=== PATIENT | female | born 1995 | race Two or more races ===

== ENCOUNTER 2018-07-02 05:09 | Inpatient (IN) | payer OTHER, MEDICAID ==
[~2018-07-02] VITALS: Ht 160 cm; Wt 100.0 kg
[2018-07-02] MEDS ORDERED: OXYTOCIN 30U/ 0.9% NaCL 500ML 500 ML IV ONE (05:29)
[2018-07-02] MEDS ORDERED: FENTANYL PF 100 MCG/2ML IV PRN (05:30)
[2018-07-02] MEDS: LACTATED RINGERS 1,000 ML IV SCH ×3 (05:35→19:11)
[2018-07-02] MEDS ORDERED: MISOPROSTOL 200 MCG TABLET ONE (05:38)
[2018-07-02] MEDS ORDERED: OXYTOCIN 30U/ 0.9% NaCL 500ML 500 ML ONE ×2 (05:38→11:14)
[2018-07-02] MEDS ORDERED: NEWBORN KIT ONE (05:38)
[2018-07-02] MEDS ORDERED: LIDOCAINE/PF 1%, 30ML ONE (05:39)
[2018-07-02] MEDS ORDERED: ONDANSETRON 2MG/ML, 2ML IVPush PRN (06:00)
[2018-07-02] MEDS ORDERED: CALCIUM CARBONATE 500 MG TAB.CHEW PO PRN (06:00)
[2018-07-02 06:06] LABS: BASOPHILS # (AUTO) 0.01 x10^3/uL (0-0.1); BASOPHILS % (AUTO) 0 % (0-1); EOSINOPHILS # (AUTO) 0.05 x10^3/uL (0-0.4); EOSINOPHILS % (AUTO) 0 % (1-7); LYMPHOCYTES # (AUTO) 1.63 x10^3/uL (1-3.4); LYMPHOCYTES % (AUTO) 13 % (22-44); MD NO; MEAN CORPUSCULAR HEMOGLOBIN 30.7 pg (27.0-34.8); MEAN CORPUSCULAR HGB CONC 34.3 g/dL (32.4-35.8); MEAN CORPUSCULAR VOLUME 89.6 fL (80-100); MEAN PLATELET VOLUME 7.9 fL (7.4-10.4); MONOCYTES # (AUTO) 0.77 x10^3/uL (0.2-0.8); MONOCYTES % (AUTO) 6 % (2-9); NEUTROPHILS # (AUTO) 10.27 x10^3/uL (1.8-6.8); NEUTROPHILS % (AUTO) 81 % (42-75); PLATELET COUNT 258 x10^3/uL (130-400); RED BLOOD COUNT 4.27 x10^6/uL (3.82-5.3); RED CELL DISTRIBUTION WIDTH 15.2 % (9.6-15.2)
[2018-07-02] MEDS ORDERED: FENTANYL PF 100 MCG/2ML ONE ×3 (06:15→08:32)
[2018-07-02] MEDS: FENTANYL PF 100 MCG/2ML IVPush PRN ×3 (06:15→08:35)
[2018-07-02] MEDS ORDERED: ONDANSETRON 2MG/ML, 2ML ONE (08:32)
[2018-07-02] MEDS: OXYTOCIN 30U/ 0.9% NaCL 500ML 500 ML IV SCH ×2 (10:10→19:11)
[2018-07-02] MEDS ORDERED: METHYLERGONOVINE 0.2 MG/ML IM PRN (10:30)
[2018-07-02] MEDS ORDERED: ONDANSETRON 2MG/ML, 2ML IV PRN (10:30)
[2018-07-02] MEDS ORDERED: MISOPROSTOL 200 MCG TABLET PR PRN (10:30)
[2018-07-02] MEDS ORDERED: DIPH,PERTUSS(ACELL),TET VAC/PF NC IM-VACC PRN (10:30)
[2018-07-02] MEDS ORDERED: OXYcodone/APAP 5/325MG TABLET PO PRN (10:30)
[2018-07-02] MEDS ORDERED: RHOGAM FROM BLOOD BANK 1 NOTE EA IM/IV ONE (10:30)
[2018-07-02] MEDS ORDERED: MEASLES,MUMPS&RUBELLA VACC/PF 0.5 ML SQ-VACC PRN (10:30)
[2018-07-02] MEDS: IBUPROFEN 600 MG TABLET PO PRN (11:44)
[2018-07-02] MEDS ORDERED: IBUPROFEN 600 MG TABLET ONE (11:45)
[2018-07-02] MEDS ORDERED: OXYcodone/APAP 5/325MG TABLET ONE (11:45)
[2018-07-02 12:05] VITALS: BP 113/74
[2018-07-02 16:00] VITALS: BP 117/79
[2018-07-02 20:30] VITALS: BP 106/70
[2018-07-02 20:46] LABS: BASOPHILS # (AUTO) 0.02 x10^3/uL (0-0.1); BASOPHILS % (AUTO) 0 % (0-1); EOSINOPHILS # (AUTO) 0.11 x10^3/uL (0-0.4); EOSINOPHILS % (AUTO) 1 % (1-7); LYMPHOCYTES # (AUTO) 2.36 x10^3/uL (1-3.4); LYMPHOCYTES % (AUTO) 17 % (22-44); MD NO; MEAN CORPUSCULAR HEMOGLOBIN 30.9 pg (27.0-34.8); MEAN CORPUSCULAR HGB CONC 34.5 g/dL (32.4-35.8); MEAN CORPUSCULAR VOLUME 89.6 fL (80-100); MEAN PLATELET VOLUME 7.8 fL (7.4-10.4); MONOCYTES # (AUTO) 1.41 x10^3/uL (0.2-0.8); MONOCYTES % (AUTO) 10 % (2-9); NEUTROPHILS # (AUTO) 10.38 x10^3/uL (1.8-6.8); NEUTROPHILS % (AUTO) 73 % (42-75); PLATELET COUNT 240 x10^3/uL (130-400)
[2018-07-03 00:45] VITALS: BP 121/70
[2018-07-03] MEDS: IBUPROFEN 600 MG TABLET PO PRN (01:01)
[2018-07-03] MEDS: DOCUSATE 100 MG CAPSULE PO PRN ×2 (01:01→07:57)
[2018-07-03 04:45] VITALS: BP 103/67
[2018-07-03] MEDS: LACTATED RINGERS 1,000 ML IV SCH (05:48)
[2018-07-03] MEDS: OXYTOCIN 30U/ 0.9% NaCL 500ML 500 ML IV SCH (06:10)
[2018-07-03 07:40] VITALS: BP 111/69
[2018-07-03] MEDS ORDERED: PRENATAL VIT/IRON/FA 1 EACH TABLET PO SCH (09:00)
== END 2018-07-03 14:40 | disposition home or self-care (01) | DRG 807 ==
LOC: LDOP 05:09 → UNDOADMIN 05:46 → LDIP 05:46 → EDIP 05:46 → 2NW 12:06
PROVIDERS: ADMIT Obstetrics & Gynecology Maternal & Fetal Medicine; ATTEND Obstetrics & Gynecology Maternal & Fetal Medicine
PROC: 10E0XZZ Delivery of Products of Conception, External Approach (ICD-10-PCS; principal; 2018-07-02)
PROC: 0UQGXZZ Repair Vagina, External Approach (ICD-10-PCS; 2018-07-02)
PROC: 10907ZC Drainage of Amniotic Fluid, Therapeutic from Products of Conception, Via Natural or Artificial Opening (ICD-10-PCS; 2018-07-02)
DX: O71.4 Obstetric high vaginal laceration alone (principal); Z37.0 Single live birth; Z3A.39 39 weeks gestation of pregnancy; Z23 Encounter for immunization
CPT/HCPCS: 36415; 85025; 86850; 86900; G0378; J2405; J3010; J2590; J7120